=== PATIENT | male | born 1940 | race Caucasian/White ===

== ENCOUNTER 2016-08-29 11:59 | Inpatient (IN) | payer MEDICARE ==
[~2016-08-29] VITALS: Ht 182.9 cm; Wt 99.5 kg
[2016-08-29 12:54] LABS: ASPARTATE AMINO TRANSFERASE 10 U/L (15-37); BLOOD UREA NITROGEN 20 mg/dL (7-18)
[2016-08-29] MEDS ORDERED: LABETALOL 5MG/ML, 20ML IVPush PRN (14:30)
[2016-08-29] MEDS ORDERED: ONDANSETRON 2MG/ML, 2ML IVPush PRN (14:30)
[2016-08-29] MEDS ORDERED: ACETAMINOPHEN 325 MG TABLET PO PRN (14:30)
[2016-08-29] MEDS ORDERED: morphine SULFATE 10 MG/ML, 1ML IVPush PRN (14:30)
[2016-08-29] MEDS ORDERED: HYDROcodone/APAP 5/325 TABLET PO PRN (14:30)
[2016-08-29] MEDS ORDERED: DOCUSATE 100 MG CAPSULE PO PRN (14:30)
[2016-08-29] MEDS ORDERED: BISACODYL 10 MG SUPP PR PRN (14:30)
[2016-08-29] MEDS ORDERED: POLYETHYLENE GLYCOL 17 GM PACKET PO PRN (14:30)
[2016-08-29] MEDS ORDERED: SODIUM CHLORIDE 0.9% 1,000 ML IV SCH (15:00)
[2016-08-29] MEDS ORDERED: GADOBUTROL 10 MMOL/10 ML PFS ONE (15:22)
[2016-08-29 16:15] VITALS: BP 181/76
[2016-08-29 17:17] VITALS: BP 181/69
[2016-08-29] MEDS ORDERED: CARVEDILOL 3.125 MG TABLET PO SCH (18:00)
[2016-08-29 19:17] VITALS: BP 132/70
[2016-08-29] MEDS: ASPIRIN 81 MG TABLET EC PO SCH (20:14)
[2016-08-29] MEDS: SODIUM CHLORIDE FLUSH 3ML SYRINGE IVF SCH (20:14)
[2016-08-29] MEDS ORDERED: FAMOTIDINE 20 MG TABLET PO SCH (21:00)
[2016-08-29] MEDS ORDERED: ATORVASTATIN 10 MG TABLET PO SCH (21:00)
[2016-08-30 00:52] VITALS: BP 96/59
[2016-08-30] MEDS ORDERED: METF750T2 PO (02:01)
[2016-08-30] MEDS ORDERED: FOLI0.8T2 PO (02:19)
[2016-08-30] MEDS ORDERED: ATOR10TA9 PO (02:19)
[2016-08-30] MEDS ORDERED: EMPA25TA PO (02:19)
[2016-08-30] MEDS ORDERED: ASPI-515 PO (02:19)
[2016-08-30] MEDS ORDERED: FURO40TA6 PO (02:19)
[2016-08-30] MEDS ORDERED: CARV3.12 PO (02:19)
[2016-08-30] MEDS ORDERED: LISI-424 PO (02:19)
[2016-08-30] MEDS ORDERED: FAMO10TA77 PO (02:19)
[2016-08-30] MEDS ORDERED: AMOX1TAB12 PO (02:19)
[2016-08-30] MEDS ORDERED: GLIP5POW PO (02:19)
[2016-08-30] MEDS ORDERED: POTA10TA11 PO (02:19)
[2016-08-30] MEDS ORDERED: GLIP5TAB10 PO (02:31)
[2016-08-30 05:59] LABS: ASPARTATE AMINO TRANSFERASE 8 U/L (15-37); BLOOD UREA NITROGEN 19 mg/dL (7-18)
[2016-08-30 06:35] VITALS: BP 104/62
[2016-08-30] MEDS ORDERED: metFORMIN 500 MG TABLET PO SCH (08:00)
[2016-08-30] MEDS ORDERED: LISINOPRIL 5 MG TABLET PO SCH (09:00)
[2016-08-30] MEDS ORDERED: FUROSEMIDE 40 MG TABLET PO SCH (09:00)
[2016-08-30] MEDS ORDERED: FOLIC ACID 1 MG TABLET PO SCH (09:00)
[2016-08-30] MEDS: SODIUM CHLORIDE FLUSH 3ML SYRINGE IVF SCH ×2 (09:00→20:35)
[2016-08-30] MEDS ORDERED: POTASSIUM CHLORIDE 10 MEQ TABLET.ER PO SCH (09:00)
[2016-08-30] MEDS ORDERED: FENTANYL PF 100 MCG/2ML ONE (11:35)
[2016-08-30] MEDS ORDERED: PHENYLEPHRINE 10 MG/ML ONE (12:12)
[2016-08-30] MEDS ORDERED: PROPOFOL 10 MG/ML, 20ML ONE (12:12)
[2016-08-30] MEDS ORDERED: EPHEDRINE 50 MG/ML, 1ML ONE (12:12)
[2016-08-30] MEDS ORDERED: VANCOMYCIN PER PHARMACY MC PRN (12:30)
[2016-08-30] MEDS ORDERED: VANCOMYCIN PMX 1GM/200ML 200 ML IV ONE (12:30)
[2016-08-30] MEDS ORDERED: ACETAMINOPHEN 325 MG TABLET PO PRN (13:00)
[2016-08-30] MEDS ORDERED: HYDROmorphone 1 MG/ML, 1ML IV PRN (13:00)
[2016-08-30] MEDS ORDERED: hydrALAzine 20 MG/ML, 1ML IV PRN (13:00)
[2016-08-30] MEDS ORDERED: HYDROcodone/APAP 7.5-325MG/15ML UDC PO PRN (13:00)
[2016-08-30] MEDS ORDERED: FENTANYL PF 100 MCG/2ML IV PRN (13:00)
[2016-08-30] MEDS ORDERED: PHARMACOKINETIC MONITORING MC PRN (13:00)
[2016-08-30] MEDS ORDERED: PHARMACOKINETIC CONSULTATION MC ONE (13:00)
[2016-08-30] MEDS ORDERED: METOPROLOL 1 MG/ML, 5ML IV PRN (13:00)
[2016-08-30] MEDS ORDERED: ALBUTEROL/IPRATROPIUM 2.5MG/0.5MG, 3 ML NPPB PRN (13:00)
[2016-08-30 13:25] VITALS: BP 153/63
[2016-08-30] MEDS ORDERED: VANCOMYCIN 1,900 MG in SODIUM CHLORIDE 0.9% 250 ML IV SCH ×2 (13:30→17:00)
[2016-08-30] MEDS: INSULIN ASPART 100 UNITS/ML, PEN SQ-INSULIN SCH ×3 (14:04→21:00)
[2016-08-30] MEDS: PIPERACILLIN/TAZO 3.375 GM in SODIUM CHLORIDE 0.9% 50 ML IV SCH ×2 (14:29→20:34)
[2016-08-30] MEDS ORDERED: [UNRECOGNIZED DRUG - REMARK] MC SCH (14:30)
[2016-08-30] MEDS ORDERED: JARDIANCE MC SCH (14:30)
[2016-08-30] MEDS: METFORMIN 750 MG HOMEMEDPO SCH (16:58)
[2016-08-30] MEDS: CARVEDILOL 3.125 MG TABLET PO SCH (16:59)
[2016-08-30] MEDS: ASPIRIN 81 MG TABLET EC PO SCH (20:33)
[2016-08-30] MEDS: ATORVASTATIN 10 MG TABLET PO SCH (20:34)
[2016-08-30 21:21] VITALS: BP 125/68
[2016-08-31 01:02] VITALS: BP 116/57
[2016-08-31] MEDS: PIPERACILLIN/TAZO 3.375 GM in SODIUM CHLORIDE 0.9% 50 ML IV SCH ×4 (02:51→20:14)
[2016-08-31] MEDS: FAMOTIDINE 20 MG TABLET PO SCH ×3 (02:52→20:14)
[2016-08-31] MEDS: CARVEDILOL 3.125 MG TABLET PO SCH ×2 (06:15→16:34)
[2016-08-31 06:25] LABS: TOTAL IRON BINDING CAPACITY 311 mcg/dL (250-450)
[2016-08-31 06:35] VITALS: BP 121/63
[2016-08-31] MEDS: INSULIN ASPART 100 UNITS/ML, PEN SQ-INSULIN SCH ×4 (07:00→20:32)
[2016-08-31] MEDS: METFORMIN 750 MG HOMEMEDPO SCH ×2 (08:00→16:34)
[2016-08-31] MEDS: FUROSEMIDE 40 MG TABLET PO SCH (08:17)
[2016-08-31] MEDS: FOLIC ACID 1 MG TABLET PO SCH (08:17)
[2016-08-31] MEDS: SODIUM CHLORIDE FLUSH 3ML SYRINGE IVF SCH ×2 (08:18→20:17)
[2016-08-31] MEDS: LISINOPRIL 5 MG TABLET PO SCH (08:18)
[2016-08-31 14:30] VITALS: BP 126/68
[2016-08-31] MEDS: FERROUS SULFATE 325 MG TABLET PO SCH (18:00)
[2016-08-31 20:10] VITALS: BP 95/60
[2016-08-31] MEDS: ASPIRIN 81 MG TABLET EC PO SCH (20:14)
[2016-08-31] MEDS: ATORVASTATIN 10 MG TABLET PO SCH (20:14)
[2016-09-01] MEDS: PIPERACILLIN/TAZO 3.375 GM in SODIUM CHLORIDE 0.9% 50 ML IV SCH ×4 (02:57→21:53)
[2016-09-01 03:09] VITALS: BP 113/62
[2016-09-01] MEDS: CARVEDILOL 3.125 MG TABLET PO SCH ×2 (06:16→18:51)
[2016-09-01] MEDS: INSULIN ASPART 100 UNITS/ML, PEN SQ-INSULIN SCH ×4 (07:00→21:54)
[2016-09-01] MEDS: METFORMIN 750 MG HOMEMEDPO SCH ×2 (08:00→17:00)
[2016-09-01] MEDS: LISINOPRIL 5 MG TABLET PO SCH (08:02)
[2016-09-01] MEDS: FOLIC ACID 1 MG TABLET PO SCH (08:03)
[2016-09-01] MEDS: FUROSEMIDE 40 MG TABLET PO SCH (08:03)
[2016-09-01] MEDS: SODIUM CHLORIDE FLUSH 3ML SYRINGE IVF SCH ×2 (08:03→21:00)
[2016-09-01] MEDS: FERROUS SULFATE 325 MG TABLET PO SCH ×3 (08:03→18:51)
[2016-09-01 08:15] VITALS: BP 100/57
[2016-09-01] MEDS ORDERED: VANCOMYCIN 1,900 MG in SODIUM CHLORIDE 0.9% 250 ML IV SCH (11:30)
[2016-09-01 14:45] VITALS: BP 118/72
[2016-09-01] MEDS: VANCOMYCIN 1,900 MG in SODIUM CHLORIDE 0.9% 250 ML IV SCH (18:51)
[2016-09-01 19:15] VITALS: BP 111/74
[2016-09-01] MEDS: ASPIRIN 81 MG TABLET EC PO SCH (19:47)
[2016-09-01] MEDS: FAMOTIDINE 20 MG TABLET PO SCH (19:47)
[2016-09-01] MEDS: ATORVASTATIN 10 MG TABLET PO SCH (19:47)
[2016-09-02 02:34] VITALS: BP 110/55
[2016-09-02] MEDS: PIPERACILLIN/TAZO 3.375 GM in SODIUM CHLORIDE 0.9% 50 ML IV SCH ×4 (03:50→23:03)
[2016-09-02] MEDS: CARVEDILOL 3.125 MG TABLET PO SCH ×2 (05:46→16:50)
[2016-09-02] MEDS: INSULIN ASPART 100 UNITS/ML, PEN SQ-INSULIN SCH ×4 (07:00→21:04)
[2016-09-02] MEDS: FOLIC ACID 1 MG TABLET PO SCH (07:48)
[2016-09-02] MEDS: METFORMIN 750 MG HOMEMEDPO SCH ×2 (07:49→16:50)
[2016-09-02] MEDS: LISINOPRIL 5 MG TABLET PO SCH (07:49)
[2016-09-02] MEDS: FERROUS SULFATE 325 MG TABLET PO SCH ×3 (07:49→16:50)
[2016-09-02] MEDS: SODIUM CHLORIDE FLUSH 3ML SYRINGE IVF SCH ×2 (07:49→21:00)
[2016-09-02] MEDS: FUROSEMIDE 40 MG TABLET PO SCH (07:49)
[2016-09-02 08:35] VITALS: BP 126/66
[2016-09-02 14:52] VITALS: BP 155/80
[2016-09-02 19:36] VITALS: BP 122/63
[2016-09-02] MEDS: VANCOMYCIN 1,900 MG in SODIUM CHLORIDE 0.9% 250 ML IV SCH (20:05)
[2016-09-02] MEDS: FAMOTIDINE 20 MG TABLET PO SCH (21:00)
[2016-09-02] MEDS: ASPIRIN 81 MG TABLET EC PO SCH (21:03)
[2016-09-02] MEDS: ATORVASTATIN 10 MG TABLET PO SCH (21:03)
[2016-09-03 03:26] VITALS: BP 90/43
[2016-09-03] MEDS: PIPERACILLIN/TAZO 3.375 GM in SODIUM CHLORIDE 0.9% 50 ML IV SCH ×3 (05:23→16:50)
[2016-09-03] MEDS: CARVEDILOL 3.125 MG TABLET PO SCH ×2 (05:46→18:00)
[2016-09-03] MEDS: INSULIN ASPART 100 UNITS/ML, PEN SQ-INSULIN SCH ×4 (07:00→21:27)
[2016-09-03 07:46] VITALS: BP 107/66
[2016-09-03] MEDS: LISINOPRIL 5 MG TABLET PO SCH (07:50)
[2016-09-03] MEDS: METFORMIN 750 MG HOMEMEDPO SCH ×2 (07:50→16:50)
[2016-09-03] MEDS: FOLIC ACID 1 MG TABLET PO SCH (07:50)
[2016-09-03] MEDS: SODIUM CHLORIDE FLUSH 3ML SYRINGE IVF SCH ×2 (07:50→20:27)
[2016-09-03] MEDS: FERROUS SULFATE 325 MG TABLET PO SCH ×3 (07:50→16:50)
[2016-09-03] MEDS: FUROSEMIDE 40 MG TABLET PO SCH (07:50)
[2016-09-03] MEDS: DAPTOMYCIN 600 MG in SODIUM CHLORIDE 0.9% 100 ML IV SCH (10:00)
[2016-09-03 15:52] VITALS: BP 126/66
[2016-09-03] MEDS: ASPIRIN 81 MG TABLET EC PO SCH (20:27)
[2016-09-03] MEDS: FAMOTIDINE 20 MG TABLET PO SCH (20:27)
[2016-09-03] MEDS: PIPERACILLIN/TAZO 3.375 GM in SODIUM CHLORIDE 0.9% 100 ML IV SCH (22:34)
[2016-09-04 02:58] VITALS: BP 112/68
[2016-09-04] MEDS: PIPERACILLIN/TAZO 3.375 GM in SODIUM CHLORIDE 0.9% 100 ML IV SCH ×2 (05:06→12:13)
[2016-09-04] MEDS: CARVEDILOL 3.125 MG TABLET PO SCH ×2 (05:13→17:42)
[2016-09-04 05:14] VITALS: BP 98/68
[2016-09-04] MEDS: INSULIN ASPART 100 UNITS/ML, PEN SQ-INSULIN SCH ×4 (07:00→21:10)
[2016-09-04] MEDS: METFORMIN 750 MG HOMEMEDPO SCH ×2 (08:00→17:00)
[2016-09-04 08:17] VITALS: BP 121/60
[2016-09-04] MEDS: SODIUM CHLORIDE FLUSH 3ML SYRINGE IVF SCH ×2 (09:00→21:10)
[2016-09-04] MEDS: FOLIC ACID 1 MG TABLET PO SCH (09:07)
[2016-09-04] MEDS: FERROUS SULFATE 325 MG TABLET PO SCH ×3 (09:07→17:42)
[2016-09-04] MEDS: LISINOPRIL 5 MG TABLET PO SCH (09:07)
[2016-09-04] MEDS: FUROSEMIDE 40 MG TABLET PO SCH (09:07)
[2016-09-04] MEDS: DAPTOMYCIN 600 MG in SODIUM CHLORIDE 0.9% 100 ML IV SCH (11:02)
[2016-09-04 15:04] VITALS: BP 138/69
[2016-09-04] MEDS ORDERED: PIPE3.375 IV (17:01)
[2016-09-04] MEDS ORDERED: DAPT500V6 IV (17:01)
[2016-09-04] MEDS ORDERED: FERR325T20 PO (17:15)
[2016-09-04] MEDS: PIPERACILLIN/TAZO/PMX 3.375GM 50 ML IV SCH ×2 (17:42→22:43)
[2016-09-04 18:57] VITALS: BP 123/73
[2016-09-04] MEDS: ASPIRIN 81 MG TABLET EC PO SCH (20:39)
[2016-09-04] MEDS: FAMOTIDINE 20 MG TABLET PO SCH (20:39)
[2016-09-05 01:24] VITALS: BP 125/76
[2016-09-05] MEDS: PIPERACILLIN/TAZO/PMX 3.375GM 50 ML IV SCH (04:54)
[2016-09-05] MEDS: CARVEDILOL 3.125 MG TABLET PO SCH (06:27)
[2016-09-05] MEDS: INSULIN ASPART 100 UNITS/ML, PEN SQ-INSULIN SCH (06:29)
[2016-09-05] MEDS: FERROUS SULFATE 325 MG TABLET PO SCH (07:43)
[2016-09-05] MEDS: FOLIC ACID 1 MG TABLET PO SCH (07:43)
[2016-09-05] MEDS: SODIUM CHLORIDE FLUSH 3ML SYRINGE IVF SCH (07:44)
[2016-09-05] MEDS: METFORMIN 750 MG HOMEMEDPO SCH (07:44)
[2016-09-05] MEDS: LISINOPRIL 5 MG TABLET PO SCH (07:44)
[2016-09-05] MEDS: FUROSEMIDE 40 MG TABLET PO SCH (07:44)
[2016-09-05 07:47] VITALS: BP 134/73
[2016-09-05] MEDS: DAPTOMYCIN 600 MG in SODIUM CHLORIDE 0.9% 100 ML IV SCH (09:04)
[2016-09-05] MEDS ORDERED: FOLI-17 PO (10:04)
== END 2016-09-05 10:28 | DRG 987 ==
LOC: ED 13:22 → EDIP 13:23 → ED 13:36 → 4NOR 16:05
PROVIDERS: ADMIT Internal Medicine; ATTEND Internal Medicine
PROC: 0SBN0ZZ Excision of Left Metatarsal-Phalangeal Joint, Open Approach (ICD-10-PCS; principal; 2016-08-30 13:15)
PROC: 02HV33Z Insertion of Infusion Device into Superior Vena Cava, Percutaneous Approach (ICD-10-PCS; 2016-09-03)
PROC: B5181ZA Fluoroscopy of Superior Vena Cava using Low Osmolar Contrast, Guidance (ICD-10-PCS; 2016-09-03)
PROC: B548ZZA Ultrasonography of Superior Vena Cava, Guidance (ICD-10-PCS; 2016-09-03)
DX: E11.621 Type 2 diabetes mellitus with foot ulcer (principal); E43 Unspecified severe protein-calorie malnutrition; L03.116 Cellulitis of left lower limb; M86.172 Other acute osteomyelitis, left ankle and foot; M00.872 Arthritis due to other bacteria, left ankle and foot; L02.612 Cutaneous abscess of left foot; L97.429 Non-pressure chronic ulcer of left heel and midfoot with unspecified severity; E11.69 Type 2 diabetes mellitus with other specified complication; N17.0 Acute kidney failure with tubular necrosis; D50.9 Iron deficiency anemia, unspecified; E11.65 Type 2 diabetes mellitus with hyperglycemia; E66.01 Morbid (severe) obesity due to excess calories; E78.00 Pure hypercholesterolemia, unspecified; B96.5 Pseudomonas (aeruginosa) (mallei) (pseudomallei) as the cause of diseases classified elsewhere; B95.2 Enterococcus as the cause of diseases classified elsewhere; Z53.29 Procedure and treatment not carried out because of patient's decision for other reasons; B96.89 Other specified bacterial agents as the cause of diseases classified elsewhere; D63.8 Anemia in other chronic diseases classified elsewhere; I11.9 Hypertensive heart disease without heart failure; I25.10 Atherosclerotic heart disease of native coronary artery without angina pectoris; L97.529 Non-pressure chronic ulcer of other part of left foot with unspecified severity; M65.9 Synovitis and tenosynovitis, unspecified; Z82.49 Family history of ischemic heart disease and other diseases of the circulatory system; Z83.3 Family history of diabetes mellitus; Z85.828 Personal history of other malignant neoplasm of skin; Z86.12 Personal history of poliomyelitis; Z86.73 Personal history of transient ischemic attack (TIA), and cerebral infarction without residual deficits; Z87.891 Personal history of nicotine dependence; Z79.899 Other long term (current) drug therapy; Z68.29 Body mass index [BMI] 29.0-29.9, adult
CPT/HCPCS: 36415; 36569; 71010; 76937; 77001; 80053; 82550; 82962; 83036; 83540; 83550; 85025; 85610; 85651; 86140; 86141; 87015; 87040; 87070; 87075; 87077; 87102; 87116; 87176; 87186; 87205; 87206; 87324; 93005; A9585; J0878; J1815; J2543; J2704; J3010; J3370; C1751; J2370; J7030; J7050